=== PATIENT | male | born 1950 | race Caucasian/White ===

== ENCOUNTER 2022-04-10 08:46 | Outpatient (CLI) | payer MEDICARE, SELFPAY ==
[2022-04-10 15:39] LABS: Chloride* 103 mmol/L (96-114); Potassium* 4.6 mmol/L (3.6-5.1); Sodium* 139 mmol/L (135-149)
[2022-04-10 15:41] LABS: Carbon Dioxide* 30 mmol/L (20-32); Cholesterol* 173 mg/dL (90-199); Creatinine* 0.8 mg/dL (0.5-1.5); Estimated Glomerular Filt Rate 95 ml/min
[2022-04-10 15:42] LABS: Blood Urea Nitrogen* 17 mg/dL (7-30); Calcium* 9.3 mg/dL (8.4-10.6); Glucose* 98 mg/dL (60-115); HDL Cholesterol* 75 mg/dL (>=40); LDL Cholesterol Calculated 80 mg/dL (<100); Triglycerides* 88 mg/dL (40-149)
[2022-04-10 16:02] LABS: PSA Screen* 0.59 ng/mL (0.10-4.00)
== END 2022-04-10 08:47 | disposition home or self-care (01) ==
PROVIDERS: PCP Family Medicine; Visit Provider Family Medicine
DX: Z00.00 Encounter for general adult medical examination without abnormal findings (principal); E78.5 Hyperlipidemia, unspecified; Z12.5 Encounter for screening for malignant neoplasm of prostate; Z13.1 Encounter for screening for diabetes mellitus; Z13.0 Encounter for screening for diseases of the blood and blood-forming organs and certain disorders involving the immune mechanism
CPT/HCPCS: 80048; 80061; 84153

== ENCOUNTER 2023-03-26 08:22 | Outpatient (CLI) | payer MEDICARE, SELFPAY | END 2023-03-26 08:23 | disposition home or self-care (01) | PROVIDERS: PCP Family Medicine; Visit Provider Family Medicine | DX: Z00.00 Encounter for general adult medical examination without abnormal findings (principal); E78.5 Hyperlipidemia, unspecified; Z13.1 Encounter for screening for diabetes mellitus; Z12.5 Encounter for screening for malignant neoplasm of prostate | CPT/HCPCS: 80048; 80061; 84153 ==

== ENCOUNTER 2024-03-24 08:50 | Outpatient (CLI) | payer MEDICARE, SELFPAY | END 2024-03-24 08:51 | disposition home or self-care (01) | PROVIDERS: PCP Family Medicine; Visit Provider Family Medicine | DX: Z00.00 Encounter for general adult medical examination without abnormal findings (principal); E78.5 Hyperlipidemia, unspecified; E78.00 Pure hypercholesterolemia, unspecified; B35.1 Tinea unguium; Z12.5 Encounter for screening for malignant neoplasm of prostate; Z80.42 Family history of malignant neoplasm of prostate; Z13.1 Encounter for screening for diabetes mellitus | CPT/HCPCS: 80048; 80061; G0103 ==

== ENCOUNTER 2024-04-28 08:20 | Outpatient (CLI) | payer MEDICARE, SELFPAY | END 2024-04-28 08:21 | disposition home or self-care (01) | LOC: NFLDREF 04-30 11:36 | PROVIDERS: PCP Family Medicine; Referring Provider Family Medicine; Visit Provider Family Medicine | DX: B35.1 Tinea unguium (principal); Z79.899 Other long term (current) drug therapy | CPT/HCPCS: 80076 ==

== ENCOUNTER 2025-03-24 09:50 | Outpatient (CLI) | payer MEDICARE, SELFPAY | END 2025-03-24 09:51 | disposition home or self-care (01) | PROVIDERS: PCP Family Medicine; Visit Provider Family Medicine | DX: E78.00 Pure hypercholesterolemia, unspecified (principal); Z12.5 Encounter for screening for malignant neoplasm of prostate | CPT/HCPCS: 80048; 80061; G0103 ==